=== PATIENT | female | born 1985 | race African-American/Black ===

== ENCOUNTER 2017-12-29 21:23 | Emergency (ER) | payer OTHER ==
[2017-12-29 21:35] VITALS: BP 125/73; BMI 38.7
[2017-12-29] MEDS ORDERED: AMOXIL CAP 500 MG PO ONE ×3 (21:49→21:59)
[2017-12-29] MEDS ORDERED: TORADOL 30 MG VIAL IM ONE (21:50)
--- NOTE | 2017-12-29 21:52 | DR.GENAD ---
HPI - PCP Primary Care Physician: [place] - HPI Comment HPI Comment: tooth pain off and on x 2 weeks. - Complaint/Symptoms Chief Complaint:: Patient complains of right lower toothache molar. Patient reports decay. Self Treatment fo Chief Complaint: Ibuprofen - Nurses notes reviewed Nurses Notes Review: Yes - Source History Provided: Patient - Mode of Arrival Mode of Arrival: Ambulatory - Timing Onset of Chief Complaint: 12/27/17 PMH - PMH Past Medical History: No (no contrib PMH) Past Surgical History: Yes Surgical History: Appendectomy, - Family History History of Family Medical Conditions: Yes Family Medical History: Diabetes Mellitus, Cancer, Hypertension - Social History Type of Tobacco Use: Cigarettes Alcohol Use: None Lives With: Family Lives Where: Home - infectious screening In the last 2 months have you had wt loss of >10#?: NO Have you had fever, night sweats or hemotysis?: No Have you traveled outside the country in the last 6 months?: No Isolation: Standard ROS - Review of Systems Constitutional: No Symptoms Reported Eyes: No Symptoms Reported ENTM: Mouth Pain Respiratoy: No Symptoms Reported Cardiovascular: No Symptoms Reported Gastrointestinal/Abdominal: No Symptoms Reported Genitourinary: No Symptoms Reported Neurological: No Symptoms Reported Musculoskeletal: No Symptoms Reported Integumentary: No Symptoms Reported Hematologic/Lymphatic: No Symptoms Reported Endocrine: No Symptoms Reported Psychiatric: No Symptoms Reported All Other Systems: Reviewed and Negative PE - Vital Signs Vitals: Temperature 98.3 F Pulse Rate 91 Respiratory Rate 20 Blood Pressure 125/73 O2 Sat by Pulse Oximetry 100 - General Limitations: No Limitations General Appearance: Alert, In No Apparent Distress - Head Head Exam: Normal Inspection - Eyes Eye exam: Normal Appearance - ENT Mouth Exam: Other (rt lower rearmost molar appears vertically fractured distally , minor gum swelling around tooth) - Neck Neck Exam: Normal Inspection - Chest Chest Inspection: Normal Inspection - Respiratory Respiratory Exam: Normal Lung Sounds Bilat Respiratory Exam: Bilateral Clear to Auscultation - Cardiovascular Cardiovascular Exam: Regular Rate, Normal Rhythm - Abdominal Exam Abdominal Exam: Normal Inspection, Normal Bowel Sounds, Soft - Extremities Extremities Exam: Normal Inspection - Back Back Exam: Normal Inspection - Neurologic Neurological Exam: Alert, Oriented X3 - Psychiatric Psychiatric Exam: Normal Affect, Normal Mood - Skin Skin Exam: Warm, Dry - Diagnosis Discharge Problem: Pain, dental - Discharge Plan Disposition: HOME, SELF-CARE Condition: Stable Prescriptions: Amoxicillin 500 mg PO TID #30 cap Ketorolac Tromethamine [Toradol Tab] 10 mg PO Q8H PRN #12 tab PRN Reason: Pain - Follow ups/Referrals Follow ups/Referrals: [facility],None [Primary Care Provider] - 3 days - Instructions Additional Notes - Additional Notes Additional Notes: Pt urged to f/u dentist for definitive eval and tx. Clinic # given to pt.
[2017-12-29] MEDS ORDERED: TORADOL 60 MG VIAL ONE (21:56)
== END 2017-12-29 22:12 | disposition home or self-care (01) ==
LOC: ER 21:23
DX: K08.89 Other specified disorders of teeth and supporting structures (principal)
CPT/HCPCS: 96372; 99282; J1885